=== PATIENT | female | born 1975 | race Caucasian/White ===

== ENCOUNTER 2017-11-05 22:19 | Emergency (ER) | payer OTHER ==
[~2017-11-05] VITALS: Ht 160 cm; Wt 63.5 kg
[2017-11-05 22:35] LABS: URINE BILIRUBIN NEGATIVE (Negative); URINE BLOOD NEGATIVE (Negative); URINE CLARITY CLEAR; URINE COLOR YELLOW; URINE GLUCOSE-RANDOM* NEGATIVE (Negative); URINE KETONES NEGATIVE (Negative); URINE LEUKOCYTES 1+ (Negative); URINE NITRITE NEGATIVE (Negative); URINE PROTEIN (DIPSTICK) NEGATIVE (Negative); URINE SPECIFIC GRAVITY 1.025 (1.005-1.035); URINE UROBILINOGEN 0.2 E.U./dl (0.2-1.0)
[2017-11-05] MEDS ORDERED: PHENAZOPYRIDIN200 M2 PO ×2 (22:39→22:42)
[2017-11-05] MEDS ORDERED: KEFLEX500 M1 PO ×2 (22:39→22:42)
[2017-11-05 22:45] LABS: MUCUS 4-6 Moderate strn/LPF (None Seen); SQUAMOUS >10 Many /LPF (0-3)
[2017-11-05 22:46] LABS: BACTERIA 1-9 Few /HPF (None Seen); CASTS None Seen /LPF (None Seen); CRYSTALS None Seen /LPF (None Seen); URINE RBC 0-2 Rare /HPF (0-2)
[2017-11-05 23:42] VITALS: BP 116/67
== END 2017-11-05 23:43 | disposition home or self-care (01) ==
LOC: ER 22:19
PROVIDERS: Physician Assistant
DX: N39.0 Urinary tract infection, site not specified (principal)